=== PATIENT | male | born 1995 | race Caucasian/White ===

== ENCOUNTER 2019-05-08 16:01 | Outpatient (CLI) | payer SELFPAY ==
[2019-05-08 16:44] LABS: Chol HDL Ratio 4.47 mg/dL (1.0-5.00); Cholesterol 152 mg/dL (0-200); HDL Cholesterol 34 mg/dL (60-100); LDL Cholesterol Calculated 87 mg/dL (50-129); LDL HDL Ratio 2.56 RATIO (0.00-3.22); Triglycerides 154 mg/dL (0-150)
[2019-05-08 17:05] LABS: Estmated Average Glucose 105; Hemoglobin A1C 5.3 % (4.0-6.0)
== END 2019-05-08 16:02 | disposition home or self-care (01) ==
PROVIDERS: Family Provider Family Medicine; PCP Family Medicine; Visit Provider Family Medicine
DX: F33.2 Major depressive disorder, recurrent severe without psychotic features (principal)
CPT/HCPCS: 36415; 80061; 83036

== ENCOUNTER → 2020-03-03 08:54 | Outpatient (BNVA) | payer MEDICAID, SELFPAY ==
[2019-05-15 09:11] VITALS: BP 139/83; BMI 52.6
== END ==
PROVIDERS: Family Provider Family Medicine; Visit Provider Counselor Professional
DX: F33.2 Major depressive disorder, recurrent severe without psychotic features (principal); F84.0 Autistic disorder; F41.1 Generalized anxiety disorder
CPT/HCPCS: 90834

== ENCOUNTER → 2020-03-24 09:13 | Outpatient (BNVA) | payer MEDICAID, SELFPAY ==
[2019-05-15 09:11] VITALS: BP 139/83; BMI 52.6
== END ==
PROVIDERS: Family Provider Family Medicine; Visit Provider Counselor Professional
DX: F33.2 Major depressive disorder, recurrent severe without psychotic features (principal); F84.0 Autistic disorder; F41.1 Generalized anxiety disorder
CPT/HCPCS: 90834

== ENCOUNTER → 2020-04-14 09:49 | Outpatient (BNVA) | payer MEDICAID, SELFPAY ==
[2019-05-15 09:11] VITALS: BP 139/83; BMI 52.6
== END ==
PROVIDERS: Family Provider Family Medicine; Visit Provider Counselor Professional
DX: F33.2 Major depressive disorder, recurrent severe without psychotic features (principal); F84.0 Autistic disorder; F41.1 Generalized anxiety disorder
CPT/HCPCS: 90834

== ENCOUNTER → 2020-04-15 09:47 | Outpatient (BNVA) | payer MEDICAID, SELFPAY ==
[2019-05-15 09:11] VITALS: BP 139/83; BMI 52.6
== END ==
PROVIDERS: Family Provider Family Medicine; Visit Provider Psychiatry & Neurology Psychiatry
DX: F84.0 Autistic disorder (principal); F41.1 Generalized anxiety disorder; F33.2 Major depressive disorder, recurrent severe without psychotic features
CPT/HCPCS: 99213

== ENCOUNTER → 2020-05-05 08:28 | Outpatient (BNVA) | payer MEDICAID, SELFPAY ==
[2019-05-15 09:11] VITALS: BP 139/83; BMI 52.6
== END ==
PROVIDERS: Family Provider Family Medicine; Visit Provider Counselor Professional
DX: F33.2 Major depressive disorder, recurrent severe without psychotic features (principal); F84.0 Autistic disorder; F41.1 Generalized anxiety disorder
CPT/HCPCS: 90834

== ENCOUNTER → 2020-05-26 08:24 | Outpatient (BNVA) | payer MEDICAID, SELFPAY ==
[2019-05-15 09:11] VITALS: BP 139/83; BMI 52.6
== END ==
PROVIDERS: Family Provider Family Medicine; Visit Provider Counselor Professional
DX: F33.2 Major depressive disorder, recurrent severe without psychotic features (principal); F84.0 Autistic disorder; F41.1 Generalized anxiety disorder
CPT/HCPCS: 90834

== ENCOUNTER → 2020-06-16 08:58 | Outpatient (BNVA) | payer MEDICAID, SELFPAY ==
[2019-05-15 09:11] VITALS: BP 139/83; BMI 52.6
== END ==
PROVIDERS: Family Provider Family Medicine; Visit Provider Counselor Professional
DX: F33.2 Major depressive disorder, recurrent severe without psychotic features (principal); F84.0 Autistic disorder; F41.1 Generalized anxiety disorder
CPT/HCPCS: 90834

== ENCOUNTER → 2020-07-07 16:05 | Outpatient (BNVA) | payer MEDICAID, SELFPAY ==
[2019-05-15 09:11] VITALS: BP 139/83; BMI 52.6
== END ==
PROVIDERS: Family Provider Family Medicine; Visit Provider Counselor Professional
DX: F33.2 Major depressive disorder, recurrent severe without psychotic features (principal); F84.0 Autistic disorder; F41.1 Generalized anxiety disorder
CPT/HCPCS: 90832

== ENCOUNTER → 2020-07-21 08:24 | Outpatient (BNVA) | payer MEDICAID, SELFPAY ==
[2019-05-15 09:11] VITALS: BP 139/83; BMI 52.6
== END ==
PROVIDERS: Family Provider Family Medicine; Visit Provider Counselor Professional
DX: F33.2 Major depressive disorder, recurrent severe without psychotic features (principal); F84.0 Autistic disorder; F41.1 Generalized anxiety disorder
CPT/HCPCS: 90834